=== PATIENT | male | born 1950 | race Caucasian/White ===

== ENCOUNTER → 2016-08-01 | Outpatient (CLI) | payer MEDICARE ==
--- NOTE | 2016-08-02 08:20 | XR ---
EXAMINATION TYPE: XR chest 2V DATE OF EXAM: 08/01/2016 4:59 PM COMPARISON: NONE HISTORY: Cough per order. Upper chest pain per patient. TECHNIQUE: Frontal and lateral views of the chest are obtained. FINDINGS: Underlying emphysematous change is not excluded with increased retrosternal airspace and fl attened hemidiaphragms noted on lateral view. There is no focal air space opacity, pleural effusion, or pneumothorax seen. The cardiac silhouette size is within normal limits. Some multilevel spurring in mid thoracic spine is present. IMPRESSION: No acute cardiopulmonary process.
== END | disposition home or self-care (01) ==
LOC: RADXRYALE 16:49
PROVIDERS: ATTEND Internal Medicine
DX: R05 Cough (principal)
CPT/HCPCS: 71020

== ENCOUNTER → 2016-08-03 | Outpatient (CLI) | payer MEDICARE ==
[2016-08-07 14:36] LABS: LDL Size 21.7 nm (>20.5); LDL Size 2 21.7 nm (>=20.8)
== END | disposition home or self-care (01) ==
LOC: LABWHC1 12:19
PROVIDERS: ATTEND Internal Medicine Cardiovascular Disease
DX: D64.9 Anemia, unspecified (principal)
CPT/HCPCS: 36415; 83704

== ENCOUNTER → 2018-06-17 | Outpatient (CLI) | payer MEDICARE ==
--- NOTE | 2018-06-17 15:25 | XR ---
Lumbosacral spine HISTORY: Right-sided pain 5 views of lumbosacral spine Findings suggest spondylolysis L4, lumbar vertebral bodies show preserved height. Anterolisthesis gra de 1 L4-5. Loss of disc height present especially at L4-5 and L5-S1 with associated vacuum phenomenon . There is multilevel spondylosis. Sclerosis present in the posterior elements. Lumbar vertebral bodi es show decreased bone mineralization. Vascular calcifications noted incidentally. IMPRESSION: Degenerative disc disease, facet arthropathy, spinal listhesis likely due to spondylolysi s bilaterally at L4. Consider lumbar MRI.
--- NOTE | 2018-06-17 15:27 | XR ---
Thoracic spine HISTORY: Chronic back pain 3 views of the thoracic spine Flowing anterior osteophytes are present along the anterior margins of the thoracic vertebral bodies with relative preservation of disc spaces. Thoracic vertebral bodies show preserved height and alignm ent, bone mineralization. Degenerative disc changes noted in the thoracic spine. IMPRESSION: Consider diffuse idiopathic skeletal hyperostosis, degenerative disc disease.
== END | disposition home or self-care (01) ==
LOC: RADXRYALE 11:36
PROVIDERS: ATTEND Internal Medicine
DX: M43.16 Spondylolisthesis, lumbar region (principal); M51.36 Other intervertebral disc degeneration, lumbar region; M51.34 Other intervertebral disc degeneration, thoracic region; M46.96 Unspecified inflammatory spondylopathy, lumbar region; M48.14 Ankylosing hyperostosis [Forestier], thoracic region
CPT/HCPCS: 72072; 72110

== ENCOUNTER → 2019-12-31 | Outpatient (CLI) | payer MEDICARE ==
--- NOTE | 2019-12-31 14:36 | XR ---
EXAMINATION TYPE: XR chest 2V DATE OF EXAM: 12/31/2019 COMPARISON: 08/01/2016 HISTORY: 69-year-old male [id number], COPD with increased shortness of breath TECHNIQUE: Frontal and lateral views FINDINGS: Heart upper limits of normal in size. Aorta and pulmonary vasculature within normal limits. Mild hype rinflation. Bridging anterior endplate spondylosis midthoracic spine. No consolidation or pleural eff usion. Subtle nodularity at the peripheral right lower lung, suspected nipple shadow. IMPRESSION: No acute process seen. Subtle nodularity at the peripheral right base suspected nipple shadow. Follow -up in 4-6 weeks utilizing nipple markers.
== END | disposition home or self-care (01) ==
LOC: RADXRYALE 14:12
PROVIDERS: ATTEND Internal Medicine
DX: J44.9 Chronic obstructive pulmonary disease, unspecified (principal)
CPT/HCPCS: 71046

== ENCOUNTER → 2020-02-15 | Outpatient (CLI) | payer MEDICARE ==
--- NOTE | 2020-02-15 11:07 | XR ---
EXAMINATION TYPE: XR chest 2V DATE OF EXAM: 02/15/2020 COMPARISON: 12/31/2019 HISTORY: 69-year-old male abnormal chest x-ray, follow-up TECHNIQUE: Frontal and lateral views FINDINGS: The cardiomediastinal silhouette, aorta, and pulmonary vasculature are within normal limits. Bilatera l nipple markers are present at the site of subtle nodularity corresponding to the region of previous mammographic abnormality at the right base. No consolidation or pleural effusion. IMPRESSION: Bibasilar nodularity corresponding to patient's nipples as confirmed by placement of nipple markers. No acute process seen.
== END | disposition home or self-care (01) ==
LOC: RADXRYALE 10:03
PROVIDERS: ATTEND Internal Medicine
DX: R91.8 Other nonspecific abnormal finding of lung field (principal)
CPT/HCPCS: 71046

== ENCOUNTER 2024-03-22 07:05 | Inpatient (IN) | payer MEDICARE ==
--- NOTE | 2024-03-22 07:36 | ED ---
General Adult HPI - General Chief complaint: Chest Pain Stated complaint: Chest Pain/SOB/Arm Pain Time Seen by Provider: 03/22/24 07:15 Source: patient, family, RN notes reviewed, old records reviewed Mode of arrival: ambulatory Limitations: no limitations - History of Present Illness Initial comments: This is a 73-year-old male with a past medical history significant for diabetes hypertension high cholesterol. Patient states he was a smoker but quit about 20 years ago. Patient comes in because at 2:00 in the morning he woke up with some arm discomfort and then moved into his chest and now he has both. Patient denies shortness of breath or difficulty breathing. Patient denies any fever chills or cough. Patient denies any diaphoretic episode. Patient denies any abdominal pain. Patient denies nausea vomiting or diarrhea. Patient denies any leg swelling or calf tenderness. - Related Data Allergies Allergy/AdvReac Type Severity Reaction Status Date / Time codeine Allergy Rash/Hives Verified 03/22/24 07:12 Penicillins Allergy Rash/Hives Verified 03/22/24 07:12 Review of Systems ROS Statement: Those systems with pertinent positive or pertinent negative responses have been documented in the HPI. ROS Other: All systems not noted in ROS Statement are negative. Past Medical History Past Medical History: Hypertension History of Any Multi-Drug Resistant Organisms: None Reported Past Surgical History: No Surgical Hx Reported Past Psychological History: No Psychological Hx Reported Smoking Status: Former smoker Past Alcohol Use History: Occasional Past Drug Use History: None Reported General Exam - General Exam Comments Initial Comments: GENERAL: Patient is well-developed and well-nourished. Patient is nontoxic and well- hydrated and is in mild distress. ENT: Neck is soft and supple. No significant lymphadenopathy is noted. Oropharynx is clear. Moist mucous membranes. Neck has full range of motion without eliciting any pain. EYES: The sclera were anicteric and conjunctiva were pink and moist. Extraocular movements were intact and pupils were equal round and reactive to light. Eyelids were unremarkable. PULMONARY: Unlabored respirations. Good breath sounds bilaterally. No audible rales rhonchi or wheezing was noted. CARDIOVASCULAR: There is a regular rate and rhythm without any murmurs gallops or rubs. ABDOMEN: Soft and nontender with normal bowel sounds. No palpable organomegaly was noted. There is no palpable pulsatile mass. SKIN: Skin is clear with no lesions or rashes and otherwise unremarkable. NEUROLOGIC: Patient is alert and oriented x3. Cranial nerves II through XII are grossly intact. Motor and sensory are also intact. Normal speech, volume and content. Symmetrical smile. MUSCULOSKELETAL: Normal extremities with adequate strength and full range of motion. LYMPHATICS: No significant lymphadenopathy is noted PSYCHIATRIC: Normal psychiatric evaluation. Limitations: no limitations Course Vital Signs 03/22/24 03/22/24 03/22/24 07:10 07:31 07:41 Temperature 97.5 F L Pulse Rate 103 H 91 Pulse Rate [ 98 Work And Family Life Consultant ] Respiratory 20 20 Rate Blood Pressure 195/56 175/86 O2 Sat by Pulse 97 95 Oximetry Medical Decision Making - Medical Decision Making EKG is interpreted by myself. EKG shows sinus rhythm at 98 bpm [place] interval 280 QRS is 94 QT interval 354 QTc is 408. Patient's EKG shows no ST segment elevation there is some ST segment depression in leads II and aVF as well as precordial leads V3 for V5 and V6 Was pt. sent in by a medical professional or institution (, PA, AIRPLANE MECHANIC APPRENTICE, urgent care, hospital, or [facility]...) When possible be specific @ -No Did you speak to anyone other than the patient for history (EMS, parent, family, police, friend...)? What history was obtained from this source @ -No Did you review nursing and triage notes (agree or disagree)? Why? @ -I reviewed and agree with nursing and triage notes Were old charts reviewed (outside hosp., previous admission, EMS record, old EKG, old radiological studies, urgent care reports/EKG's, [facility] records)? Report findings @ -No old charts were reviewed Differential Diagnosis? @ -MDM differential chest EKG interpreted by me (3pts min.). @ -As above X-rays interpreted by me (1pt min.). @ -Chest x-ray shows no acute normality CT interpreted by me (1pt min.). @ -None done U/S interpreted by me (1pt. min.). @ -None done What testing was considered but not performed or refused? (CT, X-rays, U/S, labs)? Why? @ -None What meds were considered but not given or refused? Why? @ -None Did you discuss the management of the patient with other professionals (professionals i.e. , PA, AIRPLANE MECHANIC APPRENTICE, lab, RT, psych nurse, foster care social worker, cryptologic technician operator/analyst, teacher, police booking officer, rn case manager)? Give summary @ -I spoke with [facility] agreed to admit the patient admitted the patient I wrote admitting orders Was smoking cessation discussed for >3mins.? @ -No Was critical care preformed (if so, how long)? @ -35 minutes Were there social determinants of health that impacted care today? How? (Homelessness, low income, unemployed, alcoholism, drug addiction, transportation, low edu. Level, literacy, decrease access to med. care, correction, rehab)? @ -No Was there de-escalation of care discussed even if they declined (Discuss DNR or withdrawal of care, Hospice)? DNR status @ -No What co-morbidities impacted this encounter? (DM, HTN, Smoking, COPD, CAD, Cancer, CVA, ARF, Chemo, Hep., AIDS, mental health diagnosis, sleep apnea, morbid obesity)? @ -None Was patient admitted / discharged? Hospital course, mention meds given and route, prescriptions, significant lab abnormalities, going to OR and other pertinent info. @ -Patient was given nitroglycerin and aspirin in the emergency department. Patient states nitroglycerin took away his pain almost completely. Patient states there is a little bit of an ache left but much improved compared to earlier. Patient's lab working with normal range patient's x-ray showed no acute normality. I spoke with [facility] a agreed to admit the patient admit the patient I wrote admitting orders and I consulted cardiology. Patient was also placed on heparin for unstable angina Undiagnosed new problem with uncertain prognosis? @ -No Drug Therapy requiring intensive monitoring for toxicity (Heparin, Nitro, Insulin, Cardizem)? @ -No Were any procedures done? @ -No Diagnosis/symptom? @ -Unstable angina Acute, or Chronic, or Acute on Chronic? @ -Acute Uncomplicated (without systemic symptoms) or Complicated (systemic symptoms)? @ -Complicated Side effects of treatment? @ -No Exacerbation, Progression, or Severe Exacerbation? @ -No Poses a threat to life or bodily function? How? (Chest pain, USA, VA, pneumonia, PE, COPD, DKA, ARF, appy, cholecystitis, CVA, Diverticulitis, Homicidal, Suicidal, threat to staff... and all critical care pts) @ -Yes this could lead to an VA and endorgan dysfunction - Lab Data Result diagrams: 03/22/24 07:35 03/22/24 07:35 Lab Results 03/22/24 03/22/24 03/22/24 Range/Units 07:35 07:35 07:35 WBC 7.0 (3.8-10.6) k/uL RBC 5.53 (4.30-5.90) m/uL Hgb 17.2 (13.0-17.5) gm/dL Hct 50.3 (39.0-53.0) % MCV 90.8 (80.0-100.0) fL MCH 31.1 (25.0-35.0) pg MCHC 34.2 (31.0-37.0) g/dL RDW 12.9 (11.5-15.5) % Plt Count 182 (150-450) k/uL MPV 7.8 Neutrophils % 67 % Lymphocytes % 23 % Monocytes % 5 % Eosinophils % 3 % Basophils % 0 % Neutrophils # 4.7 (1.3-7.7) k/uL Lymphocytes # 1.6 (1.0-4.8) k/uL Monocytes # 0.4 (0-1.0) k/uL Eosinophils # 0.2 (0-0.7) k/uL Basophils # 0.0 (0-0.2) k/uL PT 10.7 (10.0-12.5) sec INR 1.0 (<1.2) APTT 24.4 (22.0-30.0) sec Sodium 137 (137-145) mmol/L Potassium 5.6 H (3.5-5.1) mmol/L Chloride 100 (98-107) mmol/L Carbon Dioxide 24 (22-30) mmol/L Anion Gap 13 mmol/L BUN 23 H (9-20) mg/dL Creatinine 0.79 (0.66-1.25) mg/dL Est GFR (CKD-EPI)AfAm >90 (>60 ml/min/1.73 sqM) Est GFR (CKD-EPI)NonAf 89 (>60 ml/min/1.73 sqM) Glucose 150 H (74-99) mg/dL Calcium 9.6 (8.4-10.2) mg/dL Magnesium 1.8 (1.6-2.3) mg/dL Total Bilirubin 1.0 (0.2-1.3) mg/dL AST 43 (17-59) U/L ALT 31 (4-49) U/L Alkaline Phosphatase 76 (38-126) U/L Troponin I (0.000-0.034) ng/mL Total Protein 7.6 (6.3-8.2) g/dL Albumin 4.8 (3.5-5.0) g/dL 03/22/24 Range/Units 07:35 WBC (3.8-10.6) k/uL RBC (4.30-5.90) m/uL Hgb (13.0-17.5) gm/dL Hct (39.0-53.0) % MCV (80.0-100.0) fL MCH (25.0-35.0) pg MCHC (31.0-37.0) g/dL RDW (11.5-15.5) % Plt Count (150-450) k/uL MPV Neutrophils % % Lymphocytes % % Monocytes % % Eosinophils % % Basophils % % Neutrophils # (1.3-7.7) k/uL Lymphocytes # (1.0-4.8) k/uL Monocytes # (0-1.0) k/uL Eosinophils # (0-0.7) k/uL Basophils # (0-0.2) k/uL PT (10.0-12.5) sec INR (<1.2) APTT (22.0-30.0) sec Sodium (137-145) mmol/L Potassium (3.5-5.1) mmol/L Chloride (98-107) mmol/L Carbon Dioxide (22-30) mmol/L Anion Gap mmol/L BUN (9-20) mg/dL Creatinine (0.66-1.25) mg/dL Est GFR (CKD-EPI)AfAm (>60 ml/min/1.73 sqM) Est GFR (CKD-EPI)NonAf (>60 ml/min/1.73 sqM) Glucose (74-99) mg/dL Calcium (8.4-10.2) mg/dL Magnesium (1.6-2.3) mg/dL Total Bilirubin (0.2-1.3) mg/dL AST (17-59) U/L ALT (4-49) U/L Alkaline Phosphatase (38-126) U/L Troponin I 0.013 (0.000-0.034) ng/mL Total Protein (6.3-8.2) g/dL Albumin (3.5-5.0) g/dL Critical Care Time Critical Care Time: Yes Total Critical Care Time: 35 Disposition Clinical Impression: Unstable angina pectoris Disposition: ADMITTED IP TO THIS HOSP Referrals: Roberta Ken MD [Primary Care Provider] - 1-2 days Time of Disposition: 08:38
[2024-03-22] MEDS: ASPIRIN 81 MG PO STA (07:38)
[2024-03-22 07:42] LABS: Basophils % (A) 0 %; Eosinophils # (A) 0.2 k/uL (0-0.7); Eosinophils % (A) 3 %; HCT 50.3 % (39.0-53.0); HGB 17.2 gm/dL (13.0-17.5); Lymphocytes # (A) 1.6 k/uL (1.0-4.8); Lymphocytes % (A) 23 %; MCH 31.1 pg (25.0-35.0); MCHC 34.2 g/dL (31.0-37.0); MCV 90.8 fL (80.0-100.0); Mean Platelet Volume 7.8; Monocytes # (A) 0.4 k/uL (0-1.0); Monocytes % (A) 5 %; Neutrophils # (A) 4.7 k/uL (1.3-7.7); Neutrophils % (A) 67 %; Platelet Count 182 k/uL (150-450); RBC 5.53 m/uL (4.30-5.90); RDW 12.9 % (11.5-15.5)
[2024-03-22] MEDS: NITROGLYCERIN SL TABS 0.4 MG TAB SUBLINGUAL STA (07:42)
[2024-03-22] MEDS: NITROGLYCERIN OINT 1 INCH/GM PACKET TOPICAL STA (07:42)
--- NOTE | 2024-03-22 08:06 | XR ---
EXAMINATION TYPE: XR chest 2V DATE OF EXAM: 03/22/2024 CLINICAL HISTORY: Chest pain TECHNIQUE: Frontal and lateral views of the chest are obtained. COMPARISON: Chest x-ray February 15, 2020 FINDINGS: There is no focal air space opacity, pleural effusion, or pneumothorax seen. The cardiac silhouette size is within normal limits. Multilevel spurring in the thoracic spine is redemonstrated. IMPRESSION: No acute process. [facility], , 03/22/2024 8:03 AM
[2024-03-22 08:14] LABS: ALT 31 U/L (4-49); African American GFR (CKD) >90 (>60 ml/min/1.73 sqM); Anion Gap 13 mmol/L; Blood Urea Nitrogen 23 mg/dL (9-20); Calcium 9.6 mg/dL (8.4-10.2); Carbon Dioxide 24 mmol/L (22-30); Chloride 100 mmol/L (98-107); Glucose 150 mg/dL (74-99); Magnesium 1.8 mg/dL (1.6-2.3); Non-African American GFR(CKD) 89 (>60 ml/min/1.73 sqM); Sodium 137 mmol/L (137-145); Total Protein 7.6 g/dL (6.3-8.2)
[2024-03-22 08:17] LABS: Partial Thromboplastin Time 24.4 sec (22.0-30.0); Prothrombin Time 10.7 sec (10.0-12.5)
[2024-03-22 08:27] LABS: Alkaline Phosphatase 76 U/L (38-126); Potassium 5.6 mmol/L (3.5-5.1)
[2024-03-22 08:28] LABS: AST 43 U/L (17-59); Albumin 4.8 g/dL (3.5-5.0)
[2024-03-22] MEDS: ONDANSETRON 4 MG/2 ML VIAL IVP STA (09:03)
[2024-03-22] MEDS: HEPARIN SODIUM 1,000 UN/ML (10ML VL) IV ONE (09:06)
[2024-03-22] MEDS: HEPARIN SOD,PORK IN 0.45% NACL 25,000 UNIT in 0.45% NACL 1 250ML.BAG IV SCH (09:07)
--- NOTE | 2024-03-22 10:33 | P.HPIM ---
History of Present Illness 23-year-old male with history of diabetes mellitus and hypertension and no history of smoking came in with as an onset of chest pain last started at 2 AM today lasted until he came to ER and received nitroglycerin moderate chest pain pressure-like sensation radiating to the left arm no associated diaphoresis, has some associated lightheadedness denied any nausea vomiting chest pain is nonpleuritic in nature EKG showed some ST depressions in the anterolateral leads. Chest x-ray within normal limis. The patient had a stress test 2 years ago which was within normal limits. REVIEW OF SYSTEMS: All other systems are negative except those mentioned in the HPI PHYSICAL EXAMINATION: GENERAL: The patient is alert and oriented x3, not in any acute distress. Well developed, well nourished. HEENT: Pupils are round and equally reacting to light. EOMI. No scleral icterus. No conjunctival pallor. Normocephalic, atraumatic. No pharyngeal erythema. No thyromegaly. CARDIOVASCULAR: S1 and S2 present. No murmurs, rubs, or gallops. PULMONARY: Chest is clear to auscultation, no wheezing or crackles. ABDOMEN: Soft, nontender, nondistended, normoactive bowel sounds. No palpable organomegaly. MUSCULOSKELETAL: No joint swelling or deformity. EXTREMITIES: No cyanosis, clubbing, or pedal edema. NEUROLOGICAL: Gross neurological examination did not reveal any focal deficits. SKIN: No rashes. Assessment and plan -Chest pain atypical in nature with with EKG changes as mentioned above cardiology was consulted, patient is on IV heparin possibility of unstable angina -Hypertension -Type 2 diabetes mellitus For above-mentioned chronic medical problems patient was resumed on appropriate home medications once verified Past Medical History Past Medical History: Hypertension History of Any Multi-Drug Resistant Organisms: None Reported Past Surgical History: No Surgical Hx Reported Past Psychological History: No Psychological Hx Reported Smoking Status: Former smoker Past Alcohol Use History: Occasional Past Drug Use History: None Reported Medications and Allergies Allergies Allergy/AdvReac Type Severity Reaction Status Date / Time codeine Allergy Rash/Hives Verified 03/22/24 07:12 Penicillins Allergy Rash/Hives Verified 03/22/24 07:12 Physical Exam Vitals: Vital Signs Temp Pulse Pulse Resp BP Pulse Ox 03/22/24 10:10 98.2 F 87 18 121/73 94 L 03/22/24 09:09 86 16 125/72 93 L 03/22/24 07:41 91 20 175/86 95 03/22/24 07:31 98 03/22/24 07:10 97.5 F L 103 H 20 195/56 97 Intake and Output 03/21/24 03/22/24 03/22/24 22:59 06:59 14:59 Other: Weight 92.986 kg Results CBC & Chem 7: 03/22/24 07:35 03/22/24 07:35 Labs: Abnormal Lab Results - Last 24 Hours (Table) 03/22/24 Range/Units 07:35 Potassium 5.6 H (3.5-5.1) mmol/L BUN 23 H (9-20) mg/dL Glucose 150 H (74-99) mg/dL
[2024-03-22] MEDS: NITROGLYCERIN OINT 1 INCH/GM PACKET TOPICAL SCH (11:14)
[2024-03-22] MEDS ORDERED: ALPRAZolam 0.5 MG TAB PO PRN (12:11)
[2024-03-22] MEDS ORDERED: NITROGLYCERIN SL TABS 0.4 MG TAB SUBLINGUAL PRN (12:11)
[2024-03-22] MEDS: ASPIRIN 325 MG TAB PO STA (12:36)
[2024-03-22] MEDS: ATORVASTATIN 80 MG TAB PO STA (12:38)
--- NOTE | 2024-03-22 12:43 | P.CRDCN ---
History of Present Illness Consult date: 03/22/24 Requesting physician: Shane Allen Reason for Consult (text): chest pain Chief complaint: left arm and chest pain History of present illness: This is a pleasant 73-year-old male patient who underwent cardiac workup in our office 2 to 3 years ago including a stress test and an echocardiogram that according to the patient and his were unremarkable. He is unsure who he saw at that time. With past medical history of hypertension and diabetes mellitus type 2. Also history of prior smoking quit about 20 years ago. Presented to the hospital with complaints of left arm and chest discomfort. He has apparently been having some discomfort in the left chest and arm over the last 2 or 3 years occurring with exertion typically in cold weather. When the symptoms initially started he underwent cardiac workup in our office that he was told was unremarkable. He has not been back for follow-up in a couple years or so. He also underwent pulmonary evaluation due to some shortness of breath but this was unremarkable as well. He woke up around 2 in the morning with complaints of pain in his left arm that subsequently radiated to his chest. Upon arrival to the emergency department pain was relieved with nitroglycerin.. Diagnostics -EKG: Sinus rhythm with ST depression in the inferolateral leads, patient has not been told in the past to have an abnormal EKG -Chest x-ray: No acute process -Laboratory studies: Normal CBC, sodium 137, potassium 5.6 with slight hemolysis, BUN 23 creatinine 0.79, glucose 150, troponin 0.013 and less than 0.012 -Home cardiac medications: Aspirin 81 mg daily and lisinopril 10 mg p.o. daily. -Prior stress test: 2 to 3 years ago that was unremarkable according to the patient and his -Echocardiogram: 2 to 3 years ago that was unremarkable according to the patient and his -Cardiac catheterization: None Review Of Systems: At the time of my exam: CONSTITUTIONAL: Denies fever or chills. HEENT: Denies blurred vision, vision changes. CARDIOVASCULAR: Denies chest pain. Denies orthopnea. Denies PND. Denies palpitations, dizziness, or syncope. RESPIRATORY: Denies shortness of breath, wheezing, or cough. Denies hemoptysis. GASTROINTESTINAL: Denies abdominal pain. Denies nausea or vomiting. Denies bleeding. HEMATOLOGIC: Denies bleeding disorders. GENITOURINARY: Denies hematuria. SKIN: Denies puritis. Denies rash. PHYSICAL EXAMINATION: This is a 73-year-old gentleman in no apparent distress at the time of my examination. VITAL SIGNS: Reviewed. HEENT: Head is atraumatic, normocephalic. Pupils are equal, round. Sclerae anicteric. Conjunctivae are clear. Mucous membranes of the mouth are moist. Neck is supple. There is no elevated jugular venous pressure. No carotid bruit is heard. CHEST EXAMINATION: Clear to auscultation bilaterally. No wheezes rales or rhonchi. Respirations even and nonlabored. HEART EXAMINATION: Heart regular, positive S1 and S2. No S3. No S4. No clicks, rubs or murmurs. ABDOMEN: Soft, nontender. Bowel sounds are heard. No organomegaly noted. EXTREMITIES: 2+ peripheral pulses with no evidence of peripheral edema and no calf tenderness noted. NEUROLOGIC EXAMINATION: Patient is awake, alert and oriented x3. Assessment: 1. Chest pain, recurrent, exertional at times 2. Hypertension 3. Diabetes mellitus type 2 4. Remote smoking history Plan: From cardiology's perspective we will obtain a 2D echo with Doppler study to assess cardiac structure and function. We recommend proceeding with cardiac catheterization. The risks, benefits and alternative therapies for the above- mentioned procedure and for both sedation/analgesia as well as necessary blood product administration, if indicated, have been discussed with the patient and his . The patient has indicated understanding and acceptance of the risks and procedures discussed. Questions have been answered appropriately and he is agreeable to move forward with the above stated procedure. Patient will be set up for cardiac catheterization to be done tomorrow by Dr. Figueroa. Further recommendations to follow depending on the findings. Thank you kindly for this consultation. Nurse practitioner note has been reviewed, I agree with documented findings and plan of care. Patient was seen and examined. Past Medical History Past Medical History: Hypertension History of Any Multi-Drug Resistant Organisms: None Reported Past Surgical History: No Surgical Hx Reported Past Psychological History: No Psychological Hx Reported Smoking Status: Former smoker Past Alcohol Use History: Occasional Past Drug Use History: None Reported Medications and Allergies Home Medications Medication Instructions Recorded Confirmed Type Aspirin EC [Ecotrin Low Dose] 81 mg PO DAILY 03/22/24 03/22/24 History Hydrocortisone Cream 1 applic TOPICAL BID PRN 03/22/24 03/22/24 History [Hydrocortisone 2.5% Cream] Ketoconazole 2% Cream [Nizoral 2%] 1 applic TOPICAL DAILY PRN 03/22/24 03/22/24 History Ketoconazole 2% Shampoo [Nizoral] 1 applic TOPICAL DIRECTED PRN 03/22/24 03/22/24 History Multivitamins, Thera [Multivitamin 1 tab PO DAILY 03/22/24 03/22/24 History (formulary)] Tamsulosin [Flomax] 0.4 mg PO DIRECTED 03/22/24 03/22/24 History Triamcinolone 0.1% Cream [Kenalog 1 applic TOPICAL BID PRN 03/22/24 03/22/24 History 0.1% Cream] Triamterene-Hctz 37.5-25Mg 1 tab PO DAILY 03/22/24 03/22/24 History [Maxzide 37.5-25] lisinopriL [Zestril] 10 mg PO HS 03/22/24 03/22/24 History metFORMIN HCL [metFORMIN HCL ER] 750 mg PO BID 03/22/24 03/22/24 History Allergies Allergy/AdvReac Type Severity Reaction Status Date / Time codeine Allergy Rash/Hives Verified 03/22/24 11:24 Penicillins Allergy Rash/Hives Verified 03/22/24 11:24 Physical Exam Vitals: Vital Signs Temp Pulse Pulse Resp BP Pulse Ox 03/22/24 11:14 98.0 F 79 18 122/77 97 03/22/24 10:10 98.2 F 87 18 121/73 94 L 03/22/24 09:09 86 16 125/72 93 L 03/22/24 07:41 91 20 175/86 95 03/22/24 07:31 98 03/22/24 07:10 97.5 F L 103 H 20 195/56 97 Intake and Output 03/21/24 03/22/24 03/22/24 22:59 06:59 14:59 Other: Weight 92.986 kg Results 03/22/24 07:35 03/22/24 07:35 Cardiac Enzymes 03/22/24 03/22/24 03/22/24 Range/Units 07:35 07:35 10:35 AST 43 (17-59) U/L Troponin I 0.013 <0.012 (0.000-0.034) ng/mL Coagulation 03/22/24 Range/Units 07:35 PT 10.7 (10.0-12.5) sec APTT 24.4 (22.0-30.0) sec CBC 03/22/24 Range/Units 07:35 WBC 7.0 (3.8-10.6) k/uL RBC 5.53 (4.30-5.90) m/uL Hgb 17.2 (13.0-17.5) gm/dL Hct 50.3 (39.0-53.0) % Plt Count 182 (150-450) k/uL Comprehensive Metabolic Panel 03/22/24 Range/Units 07:35 Sodium 137 (137-145) mmol/L Potassium 5.6 H (3.5-5.1) mmol/L Chloride 100 (98-107) mmol/L Carbon Dioxide 24 (22-30) mmol/L BUN 23 H (9-20) mg/dL Creatinine 0.79 (0.66-1.25) mg/dL Glucose 150 H (74-99) mg/dL Calcium 9.6 (8.4-10.2) mg/dL AST 43 (17-59) U/L ALT 31 (4-49) U/L Alkaline Phosphatase 76 (38-126) U/L Total Protein 7.6 (6.3-8.2) g/dL Albumin 4.8 (3.5-5.0) g/dL Current Medications Generic Name Dose Route Start Last Admin Trade Name Freq PRN Reason Stop Dose Admin Aspirin 325 mg 03/23/24 09:00 Aspirin 325 Mg Tab PO DAILY [facility] Heparin Sodium/Sodium Chloride 250 mls @ 10 mls/hr 03/22/24 08:45 03/22/24 09:07 25,000 unit/ Sodium Chloride IV 10.7543 units/kg/hr .Q24H YUNIOR 10 mls/hr Administration Protocol 10.7543 UNITS/KG/HR Nitroglycerin 1 inch 03/22/24 12:00 03/22/24 11:14 Nitroglycerin Oint 1 Inch/Gm Packet TOPICAL 1 inch Q6HR [facility] Administration Intake and Output 03/21/24 03/22/24 03/22/24 22:59 06:59 14:59 Other: Weight 92.986 kg Patient Weight 03/23/24 06:59 Weight 92.986 kg 03/22/24 07:35 03/22/24 07:35
[2024-03-22 16:11] LABS: Glucose,Whole Blood 119 mg/dL (70-110)
[2024-03-22] MEDS: ACETAMINOPHEN TAB 325 MG TAB PO PRN (17:25)
[2024-03-22 20:43] LABS: Glucose,Whole Blood 138 mg/dL (70-110)
[2024-03-22] MEDS: lisinopriL 10 MG TAB PO SCH (21:08)
[2024-03-23 05:41] LABS: Glucose,Whole Blood 129 mg/dL (70-110)
[2024-03-23] MEDS: ATORVASTATIN 40 MG TAB PO SCH (06:07)
[2024-03-23] MEDS: ASPIRIN 81 MG PO SCH (06:08)
[2024-03-23] MEDS: SODIUM CHLORIDE 0.9% 1,000 ML IV ONE (07:30)
[2024-03-23] MEDS: HEPARIN SODIUM,PORCINE 10,000 UNIT in SODIUM CHLORIDE 0.9% 1,000 ML IRRIGATION PRN (07:31)
[2024-03-23] MEDS: HEPARIN SODIUM,PORCINE (1 ML) 2,500 UNIT in SODIUM CHLORIDE 0.9% 250 ML IRRIGATION PRN (07:31)
[2024-03-23] MEDS: fentaNYL (PF) 50 MCG/ML 2 ML AMP IVP ONE (07:36)
[2024-03-23] MEDS: LIDOCAINE 1% INJ 10MG/ML (20 ML MDV) SQ ONE (07:36)
[2024-03-23] MEDS: VERAPAMIL SYRINGE (5 MG/10 ML) INTRAARTER ONE (07:37)
[2024-03-23] MEDS: HEPARIN SODIUM 1,000 UN/ML (10ML VL) IV ONE (07:42)
[2024-03-23] MEDS: NITROGLYCERIN 1000MCG/10ML SYRINGE INTRACORON ONE (07:44)
[2024-03-23] MEDS: MIDAZOLAM 2 MG/2 ML VIAL IVP ONE (07:55)
[2024-03-23] MEDS: CLOPIDOGREL 75 MG TAB PO ONE (07:59)
[2024-03-23] MEDS: IOPAMIDOL-370 100ML BTL INJ ONE ×2 (08:02→08:26)
[2024-03-23 08:40] LABS: Chol/HDL Ratio 4.13 Ratio; LDL Cholesterol,Calculated 101.5 mg/dL (0.0-131.0)
[2024-03-23] MEDS ORDERED: ZOLPIDEM 5 MG TAB PO PRN (08:41)
[2024-03-23] MEDS ORDERED: ATROPINE SULFATE 0.1 MG/ML 10ML SYRINGE IV PRN (08:41)
[2024-03-23] MEDS ORDERED: MAG HYDROX/AL HYDROX/SIMETH 30 ML CUP PO PRN (08:41)
[2024-03-23] MEDS ORDERED: RX INFO: IV CONTRAST WAS GIVEN 1 EACH MISC MISCELLANE PRN (08:41)
[2024-03-23] MEDS ORDERED: NITROGLYCERIN SL TABS 0.4 MG TAB SUBLINGUAL PRN (08:41)
--- NOTE | 2024-03-23 08:50 | P.CARDCATH ---
Date of Procedure: 03/23/24 Description of Procedure: Cardiac Catheterization: The patient is a 73-year-old male with a history of hypertension and diabetes who presented with symptoms of left arm and chest discomfort, at times exertional pattern and increasing in frequency. He had nonspecific ST-T wave changes and his troponins were unremarkable. Recommendations were made regarding cardiac catheterization, the risks and the complications were discussed with the patient who is in full understanding and agreement. Procedure Description: Patient was brought to labor relations director in fasting semi-sedated state after receiving Fentanyl and Benadryl achieiving moderate conscious sedated state. Using Xylocaine Anesthesia and modified Seldinger technique, a 6-Congolese sheath was introduced in the right radial artery . Subsequently, selective coronary angiography was performed using a 5-Congolese 3.5 bend Jazmin catheter. Multiple views of the coronary artery including hemiaxial views were obtained. The 5 Congolese pigtail catheter was used to cross the aortic valve and LVEDP was calculated. PCI: After removing the catheter a 6 Congolese CLS 3.5 guiding catheter was introduced into the system and after cannulating the left main a 0.014 BMW J-wire was positioned in the distal ramus intermedius. Subsequently a 2.5 x 12 mm trek balloon was advanced and 1 inflation at 8 bk was done. After removing the balloon a [employer] [place] eye IVUS catheter was introduced and imaging were obtained and revealed a mildly calcified vessel is a distal reference luminal of 3.0 mm in diameter. After removing the catheter is 3.0 x 15 mm Xience sudha point stent was advanced and deployed at 16 bk. After removing the balloon repeat IVUS imaging was performed and revealed good apposition distally with a lumen proximally up to 3.5 mm. At that point a 3.5 x 12 mm NC trek balloon was advanced and 1 inflation in the proximal segment of the stent at 10 bk was done. After the last inflation the wire was removed images were obtained and revealed stable successful stenting. Following that, catheter and sheath were removed. Hemostasis was obtained with deployment of vascular band . There was no immediate complication. Patient was returned to room in stable condition. Of note, the patient received a total of 6500 units of intravenous heparin as well as intra-arterial verapamil. He received an oral loading dose of clopidogrel. His ACT was followed. He had no chest discomfort or EKG changes with the inflations. Findings: Fluoroscopy: Calcification of the LAD was noted Left main: This is a large size vessel, trifurcating into LAD, left circumflex and ramus intermedius, left main has no obstructive disease LAD: This is a large size vessel, reaching to the apex with a wraparound apex segment the LAD in the proximal segment there is intimal disease of 20 to 30% as well as in the mid segment and distal segment with no high-grade stenosis Left circumflex: This is a dominant vessel bifurcating distally to PDA and PLV. Giving rise to 2 obtuse marginal branch. The first obtuse marginal branch has a 30 to 40% plaque the rest of the vessel has no high-grade stenosis RCA: This is a small nondominant vessel, the ostial RCA has a 50 to 70% stenosis that improved with intracoronary nitroglycerin. There is another 60 to 70% plaque in the mid RCA, the vessel distally is small in caliber Ramus intermedius: This is a large size vessel that has a 95% stenosis proximally, the rest of the vessel has no high-grade stenosis Left Ventriculogram: Not performed Hemodynamics: There was no gradient across aortic valve, LVEDP was 10-12 mmHg Conclusion: 1. Calcified LAD 2. Severe stenosis in the ramus intermedius 3. Significant disease in the small nondominant RCA 4. Mild disease in the LAD and left circumflex 5. Successful stenting of the ramus intermedius with reduction of stenosis from 95% to 0% with IVUS imaging and HOLA-3 flow Recommendations: The patient will continue on aspirin and clopidogrel without any interruption for 6 months in addition to aggressive coronary risk modification, maintaining LDL below 70 mg/dL. The RCA will be treated medically. The findings and the recommendations were discussed with the patient and the family and they were in full understanding and agreement. Duration of sedation is 50 minutes.
[2024-03-23] MEDS: SODIUM CHLORIDE 0.9% 1,000 ML in EMPTY BAG 1 BAG IV SCH (08:59)
[2024-03-23] MEDS: METOPROLOL TARTRATE 25 MG TAB PO SCH (08:59)
[2024-03-23] MEDS: ISOSORBIDE MONONITRATE ER 30 MG TAB.ER.24H PO SCH (08:59)
[2024-03-23] MEDS ORDERED: ASPIRIN 325 MG TAB PO SCH (09:00)
--- NOTE | 2024-03-23 11:53 | P.PN ---
Subjective Progress Note Date: 03/23/24 Principal diagnosis: Chest pain Per medical H&P, "23-year-old male with history of diabetes mellitus and hypertension and no history of smoking came in with as an onset of chest pain last started at 2 AM today lasted until he came to ER and received nitroglycerin moderate chest pain pressure-like sensation radiating to the left arm no associated diaphoresis, has some associated lightheadedness denied any nausea vomiting chest pain is nonpleuritic in nature EKG showed some ST depressions in the anterolateral leads. Chest x-ray within normal limis. The patient had a stress test 2 years ago which was within normal limits." Progress note 03/23/2024: Patient was seen at bedside today. Patient had a cardiac cath done this morning. Denies any chest pain, shortness of breath, fever, chills, nausea, vomiting, belly pain, constipation or diarrhea at this time. Cardiac cath showed calcified LAD, severe stenosis in the ramus intermedius, significant disease in a small and nondominant RCA, mild disease in the LAD and left circumflex, successful stenting of the ramus intermedius with reduction of stenosis from 95 to 0%. Cardiology recommended patient to continue on aspirin and clopidogrel for the next 6 months. Vitals this morning temperature 98.2, pulse rate 75, respiratory 17, blood pressure 152/90, O2 sat 96% on room air. Lipid panel shows triglyceride of 163. Glucose 129. Review of Systems Constitutional: Denies chills, Denies fever Eyes: denies blurred vision, double vision or pain Ears, nose, mouth and throat: Denies headache, Denies sore throat Cardiovascular: Denies chest pain, Denies shortness of breath Respiratory: Denies cough Gastrointestinal: Denies abdominal pain, Denies diarrhea, Denies nausea, Denies vomiting Musculoskeletal: Denies myalgias Integumentary: Denies pruritus, Denies rash Neurological: Denies numbness, Denies weakness Psychiatric: Denies anxiety, Denies depression Endocrine: Denies fatigue, Denies weight change GENERAL: This is a -year-old in no apparent distress at the time of examination. Pleasant and cooperative. HEENT: Head is atraumatic, normocephalic. Pupils are equal, round, and reactive to light. Sclerae anicteric. Conjunctivae are clear. Mucus membranes of the mouth are moist. Neck is supple. RESPIRATORY: Clear to auscultation. No wheezes, rales, or rhonchi. No use of accessory muscles. Patient maintaining oxygen saturation greater than 92%. No chest wall tenderness is noted on palpation or with deep breathing. CARDIOVASCULAR: Regular rate and rhythm. S1 and S2 noted. No systolic or diastolic murmur auscultated. No JVD noted. No S3 or S4 noted. GASTROINTESTINAL: No distention noted. Abdomen soft and round. Normal active bowel sounds auscultated x 4 quadrants. No pain or tenderness noted upon palpation. INTEGUMENTARY: No cyanosis. No jaundice. No rashes noted. No cellulitis noted. EXTREMITIES: 2+ peripheral pulses. No evidence of peripheral edema. No calf tenderness noted. NEUROLOGIC: Cranial nerves II-XII intact. PSYCHIATRIC: Awake, alert. Appropriate affect. Intact judgement and insight. Assessment: Chest pain with atypical features Hypertension Type 2 diabetes mellitus Plan: Continue aspirin 81 mg and Lipitor 40 mg daily Continue Plavix 75 mg daily Patient had a cardiac cath done this morning Plan to discharge patient tomorrow Objective - Vital Signs Vital signs: Vital Signs Temp 98.2 F 03/23/24 02:00 Pulse 75 03/23/24 02:00 Resp 17 03/23/24 02:00 BP 152/90 03/23/24 02:00 Pulse Ox 96 03/23/24 02:00 FiO2 Intake & Output 03/22/24 03/23/24 03/23/24 18:59 06:59 18:59 Intake Total 63.833 1006.833 Output Total 500 Balance -190.580 3382.833 Weight 92.986 kg Intake: IV 850 Intake, IV Titration 63.833 156.833 Amount Heparin Sod,Pork in 0.45% 63.833 156.833 NaCl 25,000 unit In 0.45 % NaCl 1 250ml.bag @ 10. 7543 UNITS/KG/HR 10 mls/ hr IV .Q24H [facility] Rx#: [id number] Output: Urine 500 Other: # Voids 2 2 - Labs CBC & Chem 7: 03/22/24 07:35 03/22/24 07:35 Labs: Abnormal Lab Results - Last 24 Hours (Table) 03/22/24 03/22/24 03/22/24 Range/Units 14:40 16:08 20:39 APTT 40.7 H (22.0-30.0) sec POC Glucose (mg/dL) 119 H 138 H (70-110) mg/dL Triglycerides (0.00-149.00) mg/dL 03/23/24 03/23/24 03/23/24 Range/Units 04:52 04:52 05:38 APTT 37.4 H (22.0-30.0) sec POC Glucose (mg/dL) 129 H (70-110) mg/dL Triglycerides 163.00 H (0.00-149.00) mg/dL
[2024-03-23 12:06] LABS: Glucose,Whole Blood 209 mg/dL (70-110)
--- NOTE | 2024-03-23 13:24 | CA ---
Transthoracic Echo Report Name: Brandon Domingo Age: 73 Gender: M : 1950 Exam Date: 03/23/2024 12:16 Exam Location: [facility] Ht (in): 67 Wt (lb): 205 Ordering Physician: Mckenzie Figueroa MD ([id number]) Attending/Referring Phys: Seater Grinder Ernestine Pat RDCS Procedure CPT: Indications: CP Cardiac Hx: stent Technical Quality: Good Contrast 1: Total Dose (mL): Contrast 2: Total Dose (mL): MEASUREMENTS (Male / Female) Normal Values 2D ECHO LV Diastolic Diameter PLAX 4.8 cm 4.2 - 5.9 / 3.9 - 5.3 cm LV Systolic Diameter PLAX 3.2 cm IVS Diastolic Thickness 1.4 cm 0.6 - 1.0 / 0.6 - 0.9 cm LVPW Diastolic Thickness 1.3 cm 0.6 - 1.0 / 0.6 - 0.9 cm LV Relative Wall Thickness 0.6 RV Internal Dim ED PLAX 3.1 cm LA Systolic Diameter LX 3.9 cm 3.0 - 4.0 / 2.7 - 3.8 cm LV Diastolic Volume MOD 4C 71.6 cm??? LV Systolic Volume MOD 4C 34.9 cm??? LV Ejection Fraction MOD 4C 51.2 % LV Cardiac Index MOD 4C 1119.9 cm???/min???m??? LV Diastolic Length 4C 7.7 cm LV Systolic Length 4C 6.7 cm LV Diastolic Volume MOD 2C 65.4 cm??? LV Systolic Volume MOD 2C 30.3 cm??? LV Ejection Fraction MOD 2C 53.7 % LV Cardiac Index MOD 2C 1072.7 cm???/min???m??? LV Diastolic Length 2C 7.9 cm LV Systolic Length 2C 6.8 cm LA Volume 43.7 cm??? 18 - 58 / 22 - 52 cm??? LA Volume Index 20.5 cm???/m??? 16 - 28 cm???/m??? M-MODE Aortic Root Diameter MM 3.5 cm AV Cusp Separation MM 2.2 cm DOPPLER AV Peak Velocity 118.0 cm/s AV Peak Gradient 5.6 mmHg MV Area PHT 3.1 cm??? Mitral E Point Velocity 74.0 cm/s Mitral A Point Velocity 88.0 cm/s Mitral E to A Ratio 0.8 MV Deceleration Time 242.0 ms FINDINGS Left Ventricle Left ventricular ejection fraction is estimated at 50-55 %. Left ventricular cavity size normal. Moderately increased septal wall thickness. Right Ventricle Normal right ventricular size. Unable to estimate the right ventricular systolic pressure. Right Atrium Normal right atrial size. No right atrial thrombus or mass seen. Left Atrium Normal left atrial size. No left atrial thrombus or mass present. Mitral Valve Structurally normal mitral valve. No mitral stenosis, regurgitation or prolapse. Aortic Valve Trileaflet aortic valve. No aortic valve stenosis or regurgitation. Tricuspid Valve Structurally normal tricuspid valve. No tricuspid stenosis, regurgitation or prolapse. Pulmonic Valve Structurally normal pulmonic valve. No pulmonic regurgitation. Pericardium No pericardial or pleural effusion. Aorta Normal size aortic root and proximal ascending aorta. CONCLUSIONS LVEF 55% No obvious regional wall motion abnormality Moderate septal hypertrophy. No significant valvular dysfunction Normal RV size and systolic function Previewed by: Dr Jose Coker (Electronically Signed) Final Date: 23 March 2024 13:23
[2024-03-23 17:09] LABS: Glucose,Whole Blood 113 mg/dL (70-110)
[2024-03-23 20:14] LABS: Glucose,Whole Blood 134 mg/dL (70-110)
[2024-03-23] MEDS: ALPRAZolam 0.25 MG TAB PO PRN (20:53)
[2024-03-24 05:50] LABS: Glucose,Whole Blood 113 mg/dL (70-110)
[2024-03-24 07:27] LABS: African American GFR (CKD) >90 (>60 ml/min/1.73 sqM); Anion Gap 11 mmol/L; Blood Urea Nitrogen 16 mg/dL (9-20); Calcium 9.2 mg/dL (8.4-10.2); Carbon Dioxide 29 mmol/L (22-30); Chloride 99 mmol/L (98-107); Glucose 112 mg/dL (74-99); Non-African American GFR(CKD) 86 (>60 ml/min/1.73 sqM); Potassium 3.8 mmol/L (3.5-5.1); Sodium 139 mmol/L (137-145)
[2024-03-24 08:04] VITALS: BP 145/74; PULSE 65; RESP 16; TEMP 98.2
--- NOTE | 2024-03-24 08:37 | P.PN ---
Subjective Progress Note Date: 03/24/24 Requesting physician: Shane Allen Reason for Consult (text): chest pain Chief complaint: left arm and chest pain History of present illness: This is a pleasant 73-year-old male patient who underwent cardiac workup in our office 2 to 3 years ago including a stress test and an echocardiogram that according to the patient and his were unremarkable. He is unsure who he saw at that time. With past medical history of hypertension and diabetes mellitus type 2. Also history of prior smoking quit about 20 years ago. Presented to the hospital with complaints of left arm and chest discomfort. He has apparently been having some discomfort in the left chest and arm over the last 2 or 3 years occurring with exertion typically in cold weather. When the symptoms initially started he underwent cardiac workup in our office that he was told was unremarkable. He has not been back for follow-up in a couple years or so. He also underwent pulmonary evaluation due to some shortness of breath but this was unremarkable as well. He woke up around 2 in the morning with complaints of pain in his left arm that subsequently radiated to his chest. Upon arrival to the emergency department pain was relieved with nitroglycerin.. Diagnostics -EKG: Sinus rhythm with ST depression in the inferolateral leads, patient has not been told in the past to have an abnormal EKG -Chest x-ray: No acute process -Laboratory studies: Normal CBC, sodium 137, potassium 5.6 with slight hemolysis, BUN 23 creatinine 0.79, glucose 150, troponin 0.013 and less than 0.012 -Home cardiac medications: Aspirin 81 mg daily and lisinopril 10 mg p.o. daily. -Prior stress test: 2 to 3 years ago that was unremarkable according to the patient and his -Echocardiogram: 2 to 3 years ago that was unremarkable according to the patient and his -Cardiac catheterization: None 03/24/24 Patient seen and examined. Patient denies having any chest pain and no shortness of breath. Yesterday, patient underwent cardiac catheterization with Dr. Figueroa which revealed calcified LAD, severe stenosis in the ramus intermedius, significant disease in the small nondominant RCA, mild disease in the LAD and left circumflex. Patient subsequently underwent successful stenting of the ramus intermedius. Patient to be maintained on Plavix and aspirin for 6 months without interruption and aggressive coronary risk factor modification. Echocardiogram reveals EF 50 to 55%, moderate septal hypertrophy, no significant valvular dysfunction. Blood pressure 151/79, heart rate 69, pulse ox 97% on room air. Repeat blood work reveals BUN 16 creatinine 0.84. PHYSICAL EXAMINATION: This is a 73-year-old gentleman in no apparent distress at the time of my examination. VITAL SIGNS: Reviewed. HEENT: Head is atraumatic, normocephalic. Pupils are equal, round. Sclerae anicteric. Conjunctivae are clear. Mucous membranes of the mouth are moist. Neck is supple. There is no elevated jugular venous pressure. No carotid bruit is heard. CHEST EXAMINATION: Clear to auscultation bilaterally. No wheezes rales or rhonchi. Respirations even and nonlabored. HEART EXAMINATION: Heart regular, positive S1 and S2. No S3. No S4. No clicks, rubs or murmurs. ABDOMEN: Soft, nontender. Bowel sounds are heard. No organomegaly noted. EXTREMITIES: 2+ peripheral pulses with no evidence of peripheral edema and no calf tenderness noted. NEUROLOGIC EXAMINATION: Patient is awake, alert and oriented x3. Assessment: 1. Chest pain, recurrent, exertional at times 2. Coronary artery disease status post stent of the ramus intermedius 03/23/2024 3. Hypertension 4. Diabetes mellitus type 2 5. Remote smoking history Plan: Patient to be maintained on aspirin and Plavix for 6 months without interruption Patient also started on Imdur, atorvastatin, Lopressor to be continued. New prescriptions have been sent to his pharmacy. Continue lisinopril Patient is cleared for discharge from cardiology and may follow-up in the office with Dr. Figueroa in 1 week. Nurse practitioner note has been reviewed, I agree with documented findings and plan of care. Patient was seen and examined. Objective - Vital Signs Vital signs: Vital Signs Temp 98.8 F 03/24/24 02:00 Pulse 69 03/24/24 02:00 Resp 17 03/24/24 02:00 BP 151/79 03/24/24 02:00 Pulse Ox 97 03/24/24 02:00 FiO2 Intake & Output 03/23/24 03/24/24 03/24/24 18:59 06:59 18:59 Intake Total 1124.833 Balance 1124.833 Intake: IV 850 Intake, IV Titration 156.833 Amount Heparin Sod,Pork in 0.45% 156.833 NaCl 25,000 unit In 0.45 % NaCl 1 250ml.bag @ 10. 7543 UNITS/KG/HR 10 mls/ hr IV .Q24H [facility] Rx#: [id number] Oral 118 Other: Voiding Method Urinal # Voids 3 2 # Bowel Movements 1 - Labs CBC & Chem 7: 03/22/24 07:35 03/24/24 06:07 Labs: Abnormal Lab Results - Last 24 Hours (Table) 03/23/24 03/23/24 03/23/24 Range/Units 04:52 12:04 17:08 Glucose (74-99) mg/dL POC Glucose (mg/dL) 209 H 113 H (70-110) mg/dL Triglycerides 163.00 H (0.00-149.00) mg/dL 03/23/24 03/24/24 03/24/24 Range/Units 20:13 05:48 06:07 Glucose 112 H (74-99) mg/dL POC Glucose (mg/dL) 134 H 113 H (70-110) mg/dL Triglycerides (0.00-149.00) mg/dL
[2024-03-24] MEDS: CLOPIDOGREL 75 MG TAB PO SCH (08:58)
--- NOTE | 2024-03-24 11:57 | P.DS ---
Providers Date of admission: 03/22/24 08:40 Expected date of discharge: 03/24/24 Attending physician: Shane Allen Consults: 03/22/24 08:39 Consult Physician Urgent Consulting Provider: Richa Ponce Consult Reason/Comments: Chest pain Do you want consulting provider notified?: Yes 03/23/24 08:41 Consult Physician Routine Consulting Provider: Richa Ponce Consult Reason/Comments: Post Interventional patient Do you want consulting provider notified?: Already Contacted Primary care physician: Roberta Ken Hospital Course: Discharge diagnosis: Chest pain with atypical features Hypertension Type 2 diabetes mellitus Hospital Course: 23-year-old male with history of diabetes mellitus and hypertension and no history of smoking came in with as an onset of chest pain last started at 2 AM today lasted until he came to ER and received nitroglycerin moderate chest pain pressure-like sensation radiating to the left arm no associated diaphoresis, has some associated lightheadedness denied any nausea vomiting chest pain is nonpleuritic in nature EKG showed some ST depressions in the anterolateral leads. Chest x-ray within normal limis. The patient had a stress test 2 years ago which was within normal limits." Progress note 03/23/2024: Patient was seen at bedside today. Patient had a cardiac cath done this morning. Denies any chest pain, shortness of breath, fever, chills, nausea, vomiting, belly pain, constipation or diarrhea at this time. Cardiac cath showed calcified LAD, severe stenosis in the ramus intermedius, significant disease in a small and nondominant RCA, mild disease in the LAD and left circumflex, successful stenting of the ramus intermedius with reduction of stenosis from 95 to 0%. Cardiology recommended patient to continue on aspirin and clopidogrel for the next 6 months. Vitals this morning temperature 98.2, pulse rate 75, respiratory 17, blood pressure 152/90, O2 sat 96% on room air. Lipid panel shows triglyceride of 163. Glucose 129. 03/24/24: Patient seen and examined at bedside today. Vital signs stable. Labs today show sodium 139, potassium 3.8, creatinine 0.84. Patient seen at bedside today and is feeling good and excited about discharge. Patient will be discharged today and is given a script for isosorbide mononitrate 30 mg p.o. daily, atorvastatin 40 mg p.o. daily, metoprolol 25 mg p.o. twice daily, nitroglycerin 0.4 mg sublingual Q5M as needed, clopidogrel 75 mg p.o. daily, lisinopril 10 mg p.o. at bedtime. Triamterene hydrochlorothiazide to be discontinued. Patient is given a handout for [facility]- after heart catheterization- skin care specialist instructions, heart catheterization, coronary intravascular stent placement and is advised to be compliant with medications. Patient is advised to follow-up with PCP in 1-2 days, mill tender washing in 1 week. Vital signs are reviewed and stable GENERAL: This is a -year-old in no apparent distress at the time of examination. Pleasant and cooperative. HEENT: Head is atraumatic, normocephalic. Pupils are equal, round, and reactive to light. Sclerae anicteric. Conjunctivae are clear. Mucus membranes of the mouth are moist. Neck is supple. RESPIRATORY: Clear to auscultation. No wheezes, rales, or rhonchi. No use of accessory muscles. Patient maintaining oxygen saturation greater than 92%. No chest wall tenderness is noted on palpation or with deep breathing. CARDIOVASCULAR: Regular rate and rhythm. S1 and S2 noted. No systolic or diastolic murmur auscultated. No JVD noted. No S3 or S4 noted. GASTROINTESTINAL: No distention noted. Abdomen soft and round. Normal active bowel sounds auscultated x 4 quadrants. No pain or tenderness noted upon palpation. INTEGUMENTARY: No cyanosis. No jaundice. No rashes noted. No cellulitis noted. EXTREMITIES: 2+ peripheral pulses. No evidence of peripheral edema. No calf tenderness noted. NEUROLOGIC: Cranial nerves II-XII intact. PSYCHIATRIC: Awake, alert. Appropriate affect. Intact judgement and insight. A total of 30 minutes of time were spent preparing this complex discharge summary. Patient was discharged on 03/24/24 at 1200. Patient Condition at Discharge: Stable Plan - Discharge Summary Discharge Rx Participant: No New Discharge Prescriptions: New Isosorbide Mononitrate ER [Imdur] 30 mg PO DAILY #90 tab Atorvastatin [Lipitor] 40 mg PO DAILY #90 tab Metoprolol Tartrate [Lopressor] 25 mg PO BID #180 tab Nitroglycerin Sl Tabs [Nitrostat] 0.4 mg SUBLINGUAL Q5M PRN #25 tab PRN Reason: Chest Pain Clopidogrel [Plavix] 75 mg PO DAILY #90 tab Continue Tamsulosin [Flomax] 0.4 mg PO DAILY metFORMIN HCL [metFORMIN HCL ER] 750 mg PO BID Aspirin EC [Ecotrin Low Dose] 81 mg PO DAILY Triamcinolone 0.1% Cream [Kenalog 0.1% Cream] 1 applic TOPICAL BID PRN PRN Reason: arms,legs,trunk Ketoconazole 2% Shampoo [Nizoral] 1 applic TOPICAL DIRECTED PRN PRN Reason: scalp & face Multivitamins, Thera [Multivitamin (formulary)] 1 tab PO DAILY lisinopriL [Zestril] 10 mg PO HS Ketoconazole 2% Cream [Nizoral 2%] 1 applic TOPICAL DAILY PRN PRN Reason: face when flared Hydrocortisone Cream [Hydrocortisone 2.5% Cream] 1 applic TOPICAL BID PRN PRN Reason: face when flared Discontinued Triamterene-Hctz 37.5-25Mg [Maxzide 37.5-25] 1 tab PO DAILY Discharge Medication List Aspirin EC [Ecotrin Low Dose] 81 mg PO DAILY 03/22/24 [History] Hydrocortisone Cream [Hydrocortisone 2.5% Cream] 1 applic TOPICAL BID PRN 03/22/24 [History] Ketoconazole 2% Cream [Nizoral 2%] 1 applic TOPICAL DAILY PRN 03/22/24 [History] Ketoconazole 2% Shampoo [Nizoral] 1 applic TOPICAL DIRECTED PRN 03/22/24 [History] Multivitamins, Thera [Multivitamin (formulary)] 1 tab PO DAILY 03/22/24 [History] Tamsulosin [Flomax] 0.4 mg PO DAILY 03/22/24 [History] Triamcinolone 0.1% Cream [Kenalog 0.1% Cream] 1 applic TOPICAL BID PRN 03/22/24 [History] lisinopriL [Zestril] 10 mg PO HS 03/22/24 [History] metFORMIN HCL [metFORMIN HCL ER] 750 mg PO BID 03/22/24 [History] Atorvastatin [Lipitor] 40 mg PO DAILY #90 tab 03/24/24 [Rx] Clopidogrel [Plavix] 75 mg PO DAILY #90 tab 03/24/24 [Rx] Isosorbide Mononitrate ER [Imdur] 30 mg PO DAILY #90 tab 03/24/24 [Rx] Metoprolol Tartrate [Lopressor] 25 mg PO BID #180 tab 03/24/24 [Rx] Nitroglycerin Sl Tabs [Nitrostat] 0.4 mg SUBLINGUAL Q5M PRN #25 tab 03/24/24 [Rx] Follow up Appointment(s)/Referral(s): Mckenzie Figueroa MD [STAFF PHYSICIAN] - 1 Week Roberta Ken MD [Primary Care Provider] - 1-2 days Patient Instructions/Handouts: *[facility] - After Heart Catheterization - Fish Bait Processing Supervisor Instructions, Heart Catheterization (DC), Coronary Intravascular Stent Placement (DC) Discharge Disposition: HOME SELF-CARE
== END 2024-03-24 12:41 | disposition home or self-care (01) | DRG 322 ==
LOC: EC 07:05 → 6NMEDSUR 08:39 → OBSVTOIN 08:40 → 6NMEDSUR 08:49
PROVIDERS: ADMIT Hospitalist; ATTEND Hospitalist
PROC: 027034Z Dilation of Coronary Artery, One Artery with Drug-eluting Intraluminal Device, Percutaneous Approach (ICD-10-PCS; principal; 2024-03-23 10:05)
PROC: 4A023N7 Measurement of Cardiac Sampling and Pressure, Left Heart, Percutaneous Approach (ICD-10-PCS; 2024-03-23 10:05)
PROC: B2111ZZ Fluoroscopy of Multiple Coronary Arteries using Low Osmolar Contrast (ICD-10-PCS; 2024-03-23 10:05)
DX: I25.110 Atherosclerotic heart disease of native coronary artery with unstable angina pectoris (principal); E11.9 Type 2 diabetes mellitus without complications; I10 Essential (primary) hypertension; E78.00 Pure hypercholesterolemia, unspecified; Z79.84 Long term (current) use of oral hypoglycemic drugs; Z79.82 Long term (current) use of aspirin; Z87.891 Personal history of nicotine dependence; Z79.899 Other long term (current) drug therapy
CPT/HCPCS: 36415; 71046; 80048; 80053; 80061; 83735; 84484; 85025; 85610; 85730; 92978; 93005; 93306; 93458; 96365; 96366; 96375; 99291

== ENCOUNTER → 2024-06-01 | Outpatient (CLI) | payer MEDICARE ==
[2024-06-01 15:50] LABS: Chol/HDL Ratio 3.48 Ratio; LDL Cholesterol,Calculated 80.8 mg/dL (0.0-131.0)
[2024-06-01 16:04] LABS: ALT 22 U/L (10-49); AST 26 U/L (14-35); Albumin 4.3 g/dL (3.8-4.9); Albumin/Globulin Ratio 1.87 Ratio (1.60-3.17); Alkaline Phosphatase 70 U/L (41-126); Blood Urea Nitrogen 18.7 mg/dL (9.0-27.0); Calcium 9.5 mg/dL (8.7-10.3); Carbon Dioxide 20.4 mmol/L (21.6-31.8); Chloride 103 mmol/L (96-109); Globulin 2.3 g/dL (1.6-3.3); Glucose 115 mg/dL (70-110); Potassium 4.8 mmol/L (3.5-5.5); Sodium 139 mmol/L (135-145); Total Bilirubin 0.5 mg/dL (0.3-1.2); Total Protein 6.6 g/dL (6.2-8.2)
== END | disposition home or self-care (01) ==
LOC: LABWHC1 08:28
PROVIDERS: ATTEND Internal Medicine Interventional Cardiology
DX: E78.2 Mixed hyperlipidemia (principal)
CPT/HCPCS: 36415; 80053; 80061

== ENCOUNTER 2024-06-04 09:57 | Day surgery (SDC) | payer MEDICARE ==
[~2024-06-04 09:57] MED LIST: ALPRAZolam 0.25 MG TAB PO PRN; ALPRAZolam 0.5 MG TAB PO PRN; HEPARIN SODIUM,PORCINE (1 ML) 2,500 UNIT in SODIUM CHLORIDE 0.9% 250 ML IRRIGATION PRN; HEPARIN SODIUM,PORCINE 10,000 UNIT in SODIUM CHLORIDE 0.9% 1,000 ML IRRIGATION PRN; NITROGLYCERIN SL TABS 0.4 MG TAB SUBLINGUAL PRN
[2024-06-04] MEDS: ATORVASTATIN 80 MG TAB PO STA (10:13)
[2024-06-04] MEDS: ASPIRIN 325 MG TAB PO STA (10:13)
[2024-06-04] MEDS: SODIUM CHLORIDE 0.9% 1,000 ML in EMPTY BAG 1 BAG IV SCH (10:13)
[2024-06-04] MEDS: IV FLUID CONTINUATION 1,000 ML IV ONE ×2 (10:15→12:13)
[2024-06-04 10:35] LABS: Glucose,Whole Blood 127 mg/dL (70-110)
[2024-06-04 10:39] VITALS: RESP 16; TEMP 98.1
[2024-06-04 10:47] LABS: Basophils % (A) 0 %; Eosinophils # (A) 0.2 k/uL (0-0.7); Eosinophils % (A) 3 %; HCT 45.2 % (39.0-53.0); HGB 15.4 gm/dL (13.0-17.5); Lymphocytes # (A) 1.3 k/uL (1.0-4.8); Lymphocytes % (A) 21 %; MCH 31.1 pg (25.0-35.0); MCHC 34.2 g/dL (31.0-37.0); Mean Platelet Volume 8.1; Monocytes # (A) 0.4 k/uL (0-1.0); Monocytes % (A) 7 %; Neutrophils # (A) 4.1 k/uL (1.3-7.7); Neutrophils % (A) 67 %; Platelet Count 170 k/uL (150-450); RBC 4.97 m/uL (4.30-5.90); RDW 12.9 % (11.5-15.5); WBC 6.1 k/uL (3.8-10.6)
[2024-06-04] MEDS: VERAPAMIL SYRINGE (5 MG/10 ML) INTRAARTER ONE (12:18)
[2024-06-04] MEDS: fentaNYL (PF) 50 MCG/1 ML VIAL IVP ONE (12:18)
[2024-06-04] MEDS: LIDOCAINE 1% INJ 10MG/ML (30 ML VIAL-PF) SQ ONE (12:18)
[2024-06-04] MEDS: HEPARIN SODIUM 1,000 UN/ML (10ML VL) IVP ONE (12:29)
[2024-06-04] MEDS: MIDAZOLAM 2 MG/2 ML VIAL IVP ONE (12:32)
[2024-06-04] MEDS: IOPAMIDOL-300 100ML BTL INJ ONE (12:38)
[2024-06-04] MEDS ORDERED: RX INFO: IV CONTRAST WAS GIVEN 1 EACH MISC MISCELLANE PRN (13:04)
--- NOTE | 2024-06-04 13:12 | P.CARDCATH ---
Date of Procedure: 06/04/24 Description of Procedure: Cardiac Catheterization: The patient is a 73-year-old male with a history of CAD status post stenting of the ramus intermedius in March 2024, history of hypertension, hyperlipidemia and diabetes mellitus who has been complaining of exertional chest discomfort and dizziness. Recommendations were made regarding cardiac catheterization, the risks and the complications were discussed with the patient who is in full understanding and agreement. 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 Using Xylocaine Anesthesia and modified Seldinger technique, a 6-Scottish sheath was introduced in the right radial artery . Subsequently, selective coronary angiography was performed using a 5-Scottish 3.5 bend left Jazmin and 5 bend right Jazmin catheter. Multiple views of the coronary artery including hemiaxial views were obtained. The 5 Scottish pigtail catheter was used to cross the aortic valve and LVEDP was calculated. Following that, catheter and sheath were removed. Hemostasis was obtained with deployment of vascular band . There was no immediate complication. Patient was returned to room in stable condition. Of note, the patient received a total of 5000 units of intravenous heparin as well as intra-arterial verapamil. Findings: Left main: This is a large size vessel, trifurcating into LAD, left circumflex and ramus intermedius, left main has no obstructive disease LAD: This is a large size vessel, reaching to the apex with a wraparound apex segment giving rise to small diagonal branch in the mid area. The proximal left interesting artery has an eccentric 30 to 40% plaque with no high-grade stenosis Left circumflex: This is a large dominant vessel giving rise to a large obtuse marginal branch proximally the second branch is smaller caliber, distally bifurcating into PDA and PLV. The left circumflex and its branches have no obstructive disease RCA: This is a small nondominant vessel that has a 99 ostial lesion and no other 95% stenosis in the midsegment. The vessel lumen distally is very small of less than 1 mm in diameter Ramus intermedius: The stented segment is patent. The vessel is large in caliber and has no evidence of significant obstructive disease Left Ventriculogram: Not performed Hemodynamics: There was no gradient across aortic valve, LVEDP was 14-16 mmHg Conclusion: 1. Patent stent in the ramus intermedius 2. Severe stenosis in the small nondominant RCA 3. Mild disease in the proximal LAD 4. Left dominance Recommendations: In view of the size of the right coronary artery I have recommended to optimize medical therapy. The likelihood to have good long-term outcome from PCI of the RCA is lower than average because of the size of the vessel. The findings and the recommendations were discussed with the patient and the family and they were in full understanding and agreement. If he has persistent symptoms in spite of optimizing his medical regimen then he will be reevaluated for possible PCI Duration of sedation is 23 minutes.
[2024-06-04] MEDS ORDERED: SODIUM CHLORIDE 0.9% 1,000 ML IV SCH (13:15)
[2024-06-04 17:13] VITALS: BP 131/65; PULSE 82
== END 2024-06-04 16:00 | disposition home or self-care (01) ==
LOC: CATHCVL 09:57
PROVIDERS: ATTEND Internal Medicine Interventional Cardiology
DX: I25.10 Atherosclerotic heart disease of native coronary artery without angina pectoris (principal); I10 Essential (primary) hypertension; E78.2 Mixed hyperlipidemia; F17.210 Nicotine dependence, cigarettes, uncomplicated; Z88.0 Allergy status to penicillin; Z88.5 Allergy status to narcotic agent; Z79.02 Long term (current) use of antithrombotics/antiplatelets; Z79.82 Long term (current) use of aspirin; Z79.84 Long term (current) use of oral hypoglycemic drugs; Z79.899 Other long term (current) drug therapy
CPT/HCPCS: 93458; 85025; 99152; 99153; C1769 ×3; C1894; J2250; J2003; J1644; Q9967; J3010